=== PATIENT | female | born 2000 | race Two or more races ===

== ENCOUNTER 2020-06-04 08:45 | Inpatient (IN) | payer MEDICAID ==
[~2020-06-04] VITALS: Ht 160 cm; Wt 76.6 kg
[2020-06-04 09:41] LABS: BILIRUBIN,URINE NEGATIVE (NEG); CLARITY,URINE CLOUDY; COLOR,URINE YELLOW; NITRITE,URINE NEGATIVE (NEG); PROTEIN,URINE 100 mg/dL (NEG-TRACE)
[2020-06-04 09:44] LABS: BASO % 0 % (0-3); EOS % 0 % (0-3); HEMATOCRIT 34.4 % (36.0-47.0); HEMOGLOBIN 12.3 g/dL (12.0-15.5); LYMPH # 0.8 x10^3/uL (1.0-4.8); LYMPH % 8 % (24-48); MEAN CORPUSCULAR HEMOGLOBIN 31 pg (25-35); MEAN CORPUSCULAR HGB CONC 36 g/dL (31-37); MEAN CORPUSCULAR VOLUME 87 fL (79-100); MONO # 0.5 x10^3/uL (0.0-1.1); MONO % 5 % (0-9); NEUT # 8.5 x10^3/uL (1.8-7.7); NEUT % 87 % (31-73); PLATELET COUNT 230 x10^3/uL (140-400); RED BLOOD COUNT 3.94 x10^6/uL (3.50-5.40); RED CELL DISTRIBUTION WIDTH 13.1 % (11.5-14.5); WHITE BLOOD COUNT 9.8 x10^3/uL (4.0-11.0)
[2020-06-04 09:51] LABS: BACTERIA,URINE MANY /HPF (0-FEW); RBC,URINE FIELD OBSCURED /HPF (0-2); WBC,URINE TNTC /HPF (0-4)
[2020-06-04 09:54] LABS: CALCIUM 8.6 mg/dL (8.5-10.1); CREATININE 0.5 mg/dL (0.6-1.0); GFR 157.3; POTASSIUM 3.5 mmol/L (3.5-5.1)
[2020-06-04 10:00] LABS: ALBUMIN 2.9 g/dL (3.4-5.0); ALBUMIN/GLOBULIN RATIO 0.8 (1.0-1.7); TOTAL BILIRUBIN 0.2 mg/dL (0.2-1.0); TOTAL PROTEIN 6.7 g/dL (6.4-8.2)
[2020-06-04] MEDS ORDERED: cefTRIAXone IV Push 1 GM VIAL. IVP ONE (10:15)
--- NOTE | 2020-06-04 10:18 | PHYS DOC ---
Past Medical History Past Medical History: No Pertinent History Past Surgical History: Smoking Status: Never Smoker Alcohol Use: None General Adult EDM: Chief Complaint: URINARY FREQUENCY HPI: HPI: 20-year-old female presents emergency department today with suprapubic abdominal pain that radiates up into her right flank. It is a cramping aching pain that is mild to moderate. She has had some hematuria but denies vaginal bleeding. She is approximately 16 weeks by last menstrual period. Her OB is through [facility]. She denies nausea or vomiting. She denies fevers or chills. She denies any new rashes. Review of systems is negative for chest pain shortness of breath vomiting fevers chills or rash. All other review of systems negative. ED course: 20-year-old female who is about 16 weeks presenting to the emergency department today with right-sided flank pain and suprapubic abdominal pain concerning for UTI. On arrival she is afebrile. Heart rate is mildly elevated. Otherwise she is well-appearing and nontoxic. She is breathing comfortably in the examination room without any distress. White blood cell count within normal limits. Chemistry panel unremarkable. Urine analysis shows many bacteria with white blood cells too many to count with large leuk esterase. On clinical examination she is very tender in the right flank CVA. Will admit the patient to Dr. Macdonald. I spoke with him and Dr. Wheeler our OB profiling machine set up operator tool. Dr. Wheeler requested the patient be tested for COVID prior to going to the OB floor. Will admit the patient to the MedSurg floor until that test comes back. Basic bridge orders placed. Heart Score: Risk Factors: Risk Factors: DM, Current or recent (<one month) smoker, HTN, HLP, family history of CAD, obesity. Risk Scores: Score 0 - 3: 2.5% MACE over next 6 weeks - Discharge Home Score 4 - 6: 20.3% MACE over next 6 weeks - Admit for Clinical Observation Score 7 - 10: 72.7% MACE over next 6 weeks - Early Invasive Strategies Current Medications: Current Medications Medications (Trade) Dose Ordered Sig/Hossein Start Time Stop Time Status Last Admin Dose Admin Ceftriaxone Sodium (Rocephin) 1 gm 1X ONCE 06/04/20 10:15 06/04/20 10:16 Allergies: Allergies: Allergies Coded Allergies Type Severity Reaction Last Updated Verified No Known Drug Allergies 06/04/20 No Physical Exam: PE: Constitutional: Well developed, well nourished, no acute distress, non-toxic appearance. [] HENT: Normocephalic, atraumatic, bilateral external ears normal, oropharynx moist, no oral exudates, nose normal. [] Eyes: PERRLA, EOMI, conjunctiva normal, no discharge. [] Neck: Normal range of motion, no tenderness, supple, no stridor. [] Cardiovascular:Heart rate regular rhythm, no murmur [] Lungs & Thorax: Bilateral breath sounds clear to auscultation [] Abdomen: Bowel sounds normal, soft, no tenderness, no masses, no pulsatile masses. [] Skin: Warm, dry, no erythema, no rash. [] Back: No tenderness, no CVA tenderness. [] Extremities: No tenderness, no cyanosis, no clubbing, ROM intact, no edema. [] Neurologic: Alert and oriented X 3, normal motor function, normal sensory fun ction, no focal deficits noted. [] Psychologic: Affect normal, judgement normal, mood normal. [] Current Patient Data: Labs: Laboratory Tests Test 06/04/20 08:55 06/04/20 09:33 06/04/20 09:35 Urine Collection Type Unknown Urine Color Yellow Urine Clarity Cloudy Urine pH 6.0 (<5.0-8.0) Urine Specific [place] 1.015 (1.000-1.030) Urine Protein 100 mg/dL (NEG-TRACE) Urine Glucose (UA) Negative mg/dL (NEG) Urine Ketones (Stick) Negative mg/dL (NEG) Urine Blood Large (NEG) Urine Nitrite Negative (NEG) Urine Bilirubin Negative (NEG) Urine Urobilinogen Dipstick 1.0 mg/dL (0.2 mg/dL) Urine Leukocyte Esterase Large (NEG) Urine RBC Field obscured /HPF (0-2) Urine WBC Tntc /HPF (0-4) Urine Bacteria Many /HPF (0-FEW) POC Urine HCG, Qualitative Hcg positive (Negative) White Blood Count 9.8 x10^3/uL (4.0-11.0) Red Blood Count 3.94 x10^6/uL (3.50-5.40) Hemoglobin 12.3 g/dL (12.0-15.5) Hematocrit 34.4 % (36.0-47.0) L Mean Corpuscular Volume 87 fL (79-100) Mean Corpuscular Hemoglobin 31 pg (25-35) Mean Corpuscular Hemoglobin Concent 36 g/dL (31-37) Red Cell Distribution Width 13.1 % (11.5-14.5) Platelet Count 230 x10^3/uL (140-400) Neutrophils (%) (Auto) 87 % (31-73) H Lymphocytes (%) (Auto) 8 % (24-48) L Monocytes (%) (Auto) 5 % (0-9) Eosinophils (%) (Auto) 0 % (0-3) Basophils (%) (Auto) 0 % (0-3) Neutrophils # (Auto) 8.5 x10^3/uL (1.8-7.7) H Lymphocytes # (Auto) 0.8 x10^3/uL (1.0-4.8) L Monocytes # (Auto) 0.5 x10^3/uL (0.0-1.1) Eosinophils # (Auto) 0.0 x10^3/uL (0.0-0.7) Basophils # (Auto) 0.0 x10^3/uL (0.0-0.2) Sodium Level 137 mmol/L (136-145) Potassium Level 3.5 mmol/L (3.5-5.1) Chloride Level 102 mmol/L (98-107) Carbon Dioxide Level 24 mmol/L (21-32) Anion Gap 11 (6-14) Blood Urea Nitrogen 4 mg/dL (7-20) L Creatinine 0.5 mg/dL (0.6-1.0) L Estimated GFR (Cockcroft-Gault) 157.3 BUN/Creatinine Ratio 8 (6-20) Glucose Level 89 mg/dL (70-99) Calcium Level 8.6 mg/dL (8.5-10.1) Total Bilirubin Pending Aspartate Amino Transferase (AST) Pending Alanine Aminotransferase (ALT) Pending Alkaline Phosphatase Pending Total Protein Pending Albumin Pending Albumin/Globulin Ratio Pending Lipase Pending Laboratory Tests 06/04/20 09:35 Laboratory Tests 06/04/20 09:35 Vital Signs: Vital Signs Date Time Temp Pulse Resp B/P (MAP) Pulse Ox O2 Delivery O2 Flow Rate FiO2 06/04/20 09:01 98.2 97 17 112/55 (74) 99 Room Air 98.2 EKG: EKG: [] Radiology/Procedures: Radiology/Procedures: [] Course & Med Decision Making: Course & Med Decision Making Pertinent Labs and Imaging studies reviewed. (See chart for details) [] Dragon Disclaimer: Dragon Disclaimer: This electronic medical record was generated, in whole or in part, using a voice recognition dictation system. Departure Departure Impression: Primary Impression: Pyelonephritis Additional Impression: Pyelonephritis affecting in second trimester Disposition: ADMITTED INPATIENT Admitting Physician: HIMBrittni Condition: STABLE Referrals: NON,STAFF (PCP) Justicifation of Admission Dx: Justifications for Admission: Justification of Admission Dx: N/A CHERIE GIL MD Jun 04, 2020 10:18
--- NOTE | 2020-06-04 10:26 | RAD ---
CLINICAL HISTORY: Reason: abd pain and cramping in preg / Spl. Instructions: / History: COMPARISON: None available. TECHNIQUE: Limited transabdominal ultrasound of the uterus was performed. FINDINGS: There is a single live fetus in breech position. Cardiac activity is visualized and documented at a rate of 150 beats per minute. The placenta is anterior without placenta previa. The amniotic fluid is normal for gestational stage. The amniotic fluid index is 10.2. Cervix length measures 4.2 cm. Current measurements are: BPD - 3.52 cm = 16 weeks 6 days HC - 13.39 cm = 16 weeks 6 days AC - 11.52 cm =17 weeks 2 days FL - 2.33 cm = 17 weeks 0 days The gestational size based on todays measurements is 17 weeks 0 days. The estimated weight is 182+/- 27 gm. The estimated date of delivery is 11/12/2020. IMPRESSION: Single live intrauterine gestation in breech presentation with estimated gestational age of 17 weeks 0 days with estimated date of delivery 11/12/2020 Electronically signed by: Arnie Ortega MD (06/04/2020 10:23 AM) [id number]
[2020-06-04] MEDS ORDERED: IV NORMAL SALINE 1000ML BAG 1,000 ML IV ONE (10:45)
[2020-06-04] MEDS ORDERED: IV NORMAL SALINE 1000ML BAG 1,000 ML IV SCH (11:12)
[2020-06-04 12:45] VITALS: BP 91/58
[2020-06-04] MEDS ORDERED: DOCUSATE SODIUM 100 MG CAPSULE. PO PRN (13:30)
[2020-06-04] MEDS: IV NORMAL SALINE 1000ML BAG 1,000 ML IV SCH ×2 (14:06→22:45)
[2020-06-04] MEDS: ACETAMINOPHEN 325 MG TABLET. PO PRN ×2 (14:58→21:30)
--- NOTE | 2020-06-04 15:44 | RAD ---
STUDY: Complete renal sonogram INDICATION: Pyelonephritis. COMPARISON: None. TECHNIQUE: Real-time grayscale and color Doppler sonographic evaluation of both kidneys. The bladder was also evaluated. FINDINGS: Right kidney: Measures 12.2 cm in length. Cortical thickness is normal and cortical echogenicity is within the broad range of normal as well. No hydronephrosis but there is slight asymmetric prominence of the right renal pelvis. Left kidney: Measures 12.9 cm in length. Cortical thickness is normal and cortical echogenicity is within the broad range of normal as well. No hydronephrosis. Bladder: No layering debris or asymmetric wall thickening. Visualization of left ureteral jet but not a right ureteral jet Miscellaneous: No perinephric fluid collection. IMPRESSION: 1. The sonographic appearance of both kidneys is relatively normal. Note is made that ultrasound is often insensitive to the changes of acute pyelonephritis. 2. Mild asymmetric prominence of the right renal pelvis would most likely be physiologic given a known intrauterine . No hydronephrosis on either side. Maintained visualization of the left ureteral jet but absent visualization of a jet on the right. Electronically signed by: KIM SAAVEDRA MD (06/04/2020 3:41 PM) [id number]
--- NOTE | 2020-06-04 17:31 | PDOC1 ---
History and Physical Date of Admission: Date of Admission DATE: 06/04/20 TIME: 17:16 Chief Complaint: Chief Complain: Right flank pain and dysuria History of Present Illness: HPI: 20 yo F with no significant PMHx who is 17 weeks who comes to the ED with dysuria, lower ABD pain, right flank pain 10/10 that started beginning of this week. She also did complain of hematuria, N/V, and subjective fevers. There are no aggravating or alleviating factors. She has no complications with her current pregancy or her past one either. Denies personal or family hx of kidney stones, chest pain, SOB, diarrhea, or bloody stools. Patient has no loss of smell or taste, outside travel, or close contact with patients of COVID Past Medical/Surgical History: PMH/PSH: None Allergies: Allergies: Coded Allergies: No Known Drug Allergies (Unverified , 06/04/20) Family History: Family History: None Social History: Social History: Denies tobacco, alcohol, or drug abuse Current Medications: Current Medications Current Medications Ceftriaxone Sodium (Rocephin) 1 gm 1X ONCE IVP Last administered on 06/04/20at 10:18; Start 06/04/20 at 10:15; Stop 06/04/20 at 10:16; Status DC Sodium Chloride 1,000 ml @ 1,000 mls/hr 1X ONCE IV Last administered on 06/04/20at 10:48; Start 06/04/20 at 10:45; Stop 06/04/20 at 11:44; Status DC Sodium Chloride 1,000 ml @ 120 mls/hr Q8H20M IV ; Start 06/04/20 at 11:12; Stop 06/04/20 at 13:26; Status DC Ceftriaxone Sodium (Rocephin) 1 gm Q24H IVP ; Start 06/05/20 at 10:00 Sodium Chloride 1,000 ml @ 125 mls/hr Q8H IV Last administered on 06/04/20at 14:06; Start 06/04/20 at 13:30 Acetaminophen (Tylenol) 650 mg PRN Q6HRS PRN PO PAIN Last administered on 06/04/20at 14:58; Start 06/04/20 at 13:30 Docusate Sodium (Colace) 100 mg PRN BID PRN PO HARD STOOLS Last administered on 06/04/20at 14:58; Start 06/04/20 at 13:30 ROS: Review of Systems Review of System REVIEW OF SYSTEMS: GENERAL: Denies weakness SKIN: No bruising, hair changes or rashes. EYES: No blurred, double or loss of vision. NOSE AND THROAT: No history of nosebleeds, hoarseness or sore throat. HEART: No history of palpitations, chest pain or shortness of breath on exertion. LUNGS: Denies cough, hemoptysis, wheezing or shortness of breath. GASTROINTESTINAL: Denies changes in appetite, nausea, vomiting, diarrhea or constipation. GENITOURINARY: No history of frequency, urgency, hesitancy or nocturia. NEUROLOGIC: Denies history of numbness, tingling, or tremor. PSYCHIATRIC: No history of panic, anxiety or depression. ENDOCRINE: No history of heat or cold intolerance, polyuria or polydipsia. EXTREMITIES: Denies joint pain, pain on walking or stiffness. Physical Exam: Vital Signs: Vital Signs Date Time Temp Pulse Resp B/P (MAP) Pulse Ox O2 Delivery O2 Flow Rate FiO2 06/04/20 12:45 98.0 94 18 91/58 (69) 97 Room Air 98.0 Physcial Exam: GEN: No apparent distress. Alert and oriented HEENT: Normal cephalic, atraumatic, external auditory canals are patent EYES: Extraocular muscles are intact, pupil are equally round and reactive to light and accommodation MUSCULOSKELETAL: Well developed , well nourished, good range of motion ENDOCRINE: No thyromegaly was palpated LYMPHATICS: No cervical chain or axillary nodes were noted HEMATOPOIETIC: No bruising NECK: Supple, no JVD, no thyromegaly was noted LUNGS: Clear to auscultation in all lung rueda without rhonchi or wheezing HEART: RRR, S!, S2 present. Peripheral pulses intact, no obvious murmurs noted ABDOMEN: Soft, nontender. ABD appropriate for term. minimal CVA tenderness. EXTREMITIES: Without clubbing, cyanosis, or edema. Pedal pulses intact. Negative Homans sign NEUROLOGIC: Normal speech and tone. A&O x 3, moves all extremities, no obvious focal deficits PSYCHIATRIC: Normal affect, normal mood. Stable SKIN: No ulcerations or rashes, good skin turgor, no jaundice VASCULAR: Good capillary refill, neurovascular bundle appears to be intact Labs: Labs: Laboratory Tests Test 06/04/20 08:55 06/04/20 09:33 06/04/20 09:35 06/04/20 11:08 Urine Collection Type Unknown Urine Color Yellow Urine Clarity Cloudy Urine pH 6.0 (<5.0-8.0) Urine Specific [place] 1.015 (1.000-1.030) Urine Protein 100 mg/dL (NEG-TRACE) Urine Glucose (UA) Negative mg/dL (NEG) Urine Ketones (Stick) Negative mg/dL (NEG) Urine Blood Large (NEG) Urine Nitrite Negative (NEG) Urine Bilirubin Negative (NEG) Urine Urobilinogen Dipstick 1.0 mg/dL (0.2 mg/dL) Urine Leukocyte Esterase Large (NEG) Urine RBC Field obscured /HPF (0-2) Urine WBC Tntc /HPF (0-4) Urine Bacteria Many /HPF (0-FEW) Bedside Urine HCG, Qualitative Hcg positive (Negative) White Blood Count 9.8 x10^3/uL (4.0-11.0) Red Blood Count 3.94 x10^6/uL (3.50-5.40) Hemoglobin 12.3 g/dL (12.0-15.5) Hematocrit 34.4 % (36.0-47.0) Mean Corpuscular Volume 87 fL (79-100) Mean Corpuscular Hemoglobin 31 pg (25-35) Mean Corpuscular Hemoglobin Concent 36 g/dL (31-37) Red Cell Distribution Width 13.1 % (11.5-14.5) Platelet Count 230 x10^3/uL (140-400) Neutrophils (%) (Auto) 87 % (31-73) Lymphocytes (%) (Auto) 8 % (24-48) Monocytes (%) (Auto) 5 % (0-9) Eosinophils (%) (Auto) 0 % (0-3) Basophils (%) (Auto) 0 % (0-3) Neutrophils # (Auto) 8.5 x10^3/uL (1.8-7.7) Lymphocytes # (Auto) 0.8 x10^3/uL (1.0-4.8) Monocytes # (Auto) 0.5 x10^3/uL (0.0-1.1) Eosinophils # (Auto) 0.0 x10^3/uL (0.0-0.7) Basophils # (Auto) 0.0 x10^3/uL (0.0-0.2) Sodium Level 137 mmol/L (136-145) Potassium Level 3.5 mmol/L (3.5-5.1) Chloride Level 102 mmol/L (98-107) Carbon Dioxide Level 24 mmol/L (21-32) Anion Gap 11 (6-14) Blood Urea Nitrogen 4 mg/dL (7-20) Creatinine 0.5 mg/dL (0.6-1.0) Estimated GFR (Cockcroft-Gault) 157.3 BUN/Creatinine Ratio 8 (6-20) Glucose Level 89 mg/dL (70-99) Calcium Level 8.6 mg/dL (8.5-10.1) Total Bilirubin 0.2 mg/dL (0.2-1.0) Aspartate Amino Transf (AST/SGOT) 10 U/L (15-37) Alanine Aminotransferase (ALT/SGPT) 10 U/L (14-59) Alkaline Phosphatase 56 U/L (46-116) Total Protein 6.7 g/dL (6.4-8.2) Albumin 2.9 g/dL (3.4-5.0) Albumin/Globulin Ratio 0.8 (1.0-1.7) Lipase 72 U/L (73-393) Lactic Acid Level 1.0 mmol/L (0.4-2.0) Laboratory Tests Test 06/04/20 08:55 06/04/20 09:33 06/04/20 09:35 06/04/20 11:08 Urine Collection Type Unknown Urine Color Yellow Urine Clarity Cloudy Urine pH 6.0 (<5.0-8.0) Urine Specific [place] 1.015 (1.000-1.030) Urine Protein 100 mg/dL (NEG-TRACE) Urine Glucose (UA) Negative mg/dL (NEG) Urine Ketones (Stick) Negative mg/dL (NEG) Urine Blood Large (NEG) Urine Nitrite Negative (NEG) Urine Bilirubin Negative (NEG) Urine Urobilinogen Dipstick 1.0 mg/dL (0.2 mg/dL) Urine Leukocyte Esterase Large (NEG) Urine RBC Field obscured /HPF (0-2) Urine WBC Tntc /HPF (0-4) Urine Bacteria Many /HPF (0-FEW) Bedside Urine HCG, Qualitative Hcg positive (Negative) White Blood Count 9.8 x10^3/uL (4.0-11.0) Red Blood Count 3.94 x10^6/uL (3.50-5.40) Hemoglobin 12.3 g/dL (12.0-15.5) Hematocrit 34.4 % (36.0-47.0) Mean Corpuscular Volume 87 fL (79-100) Mean Corpuscular Hemoglobin 31 pg (25-35) Mean Corpuscular Hemoglobin Concent 36 g/dL (31-37) Red Cell Distribution Width 13.1 % (11.5-14.5) Platelet Count 230 x10^3/uL (140-400) Neutrophils (%) (Auto) 87 % (31-73) Lymphocytes (%) (Auto) 8 % (24-48) Monocytes (%) (Auto) 5 % (0-9) Eosinophils (%) (Auto) 0 % (0-3) Basophils (%) (Auto) 0 % (0-3) Neutrophils # (Auto) 8.5 x10^3/uL (1.8-7.7) Lymphocytes # (Auto) 0.8 x10^3/uL (1.0-4.8) Monocytes # (Auto) 0.5 x10^3/uL (0.0-1.1) Eosinophils # (Auto) 0.0 x10^3/uL (0.0-0.7) Basophils # (Auto) 0.0 x10^3/uL (0.0-0.2) Sodium Level 137 mmol/L (136-145) Potassium Level 3.5 mmol/L (3.5-5.1) Chloride Level 102 mmol/L (98-107) Carbon Dioxide Level 24 mmol/L (21-32) Anion Gap 11 (6-14) Blood Urea Nitrogen 4 mg/dL (7-20) Creatinine 0.5 mg/dL (0.6-1.0) Estimated GFR (Cockcroft-Gault) 157.3 BUN/Creatinine Ratio 8 (6-20) Glucose Level 89 mg/dL (70-99) Calcium Level 8.6 mg/dL (8.5-10.1) Total Bilirubin 0.2 mg/dL (0.2-1.0) Aspartate Amino Transf (AST/SGOT) 10 U/L (15-37) Alanine Aminotransferase (ALT/SGPT) 10 U/L (14-59) Alkaline Phosphatase 56 U/L (46-116) Total Protein 6.7 g/dL (6.4-8.2) Albumin 2.9 g/dL (3.4-5.0) Albumin/Globulin Ratio 0.8 (1.0-1.7) Lipase 72 U/L (73-393) Lactic Acid Level 1.0 mmol/L (0.4-2.0) Assessment/Plan Assessment/Plan Acute pyelonephritis 17 weeks gestation Person under investigation for COVID Admit to OB floor Continue rocephin pending blood and urine Cx OB consult SCD for dvt prophy Continue IVF NPO for now Dispo: pending COVID testing, blood and urine Cx Justicifation of Admission Dx: Justifications for Admission: Justification of Admission Dx: N/A MARGARITO SWEENEY MD Jun 04, 2020 17:30
[2020-06-04 18:20] VITALS: BP 86/52
[2020-06-04 21:38] VITALS: BP 100/38
[2020-06-05 02:04] VITALS: BP 84/35
[2020-06-05 06:05] VITALS: BP 90/34
[2020-06-05] MEDS: IV NORMAL SALINE 1000ML BAG 1,000 ML IV SCH ×3 (06:45→21:30)
[2020-06-05 08:52] LABS: BASO % 0 % (0-3); EOS % 1 % (0-3); HEMATOCRIT 32.3 % (36.0-47.0); HEMOGLOBIN 11.3 g/dL (12.0-15.5); LYMPH # 1.1 x10^3/uL (1.0-4.8); LYMPH % 19 % (24-48); MEAN CORPUSCULAR HEMOGLOBIN 31 pg (25-35); MEAN CORPUSCULAR HGB CONC 35 g/dL (31-37); MEAN CORPUSCULAR VOLUME 89 fL (79-100); MONO # 0.3 x10^3/uL (0.0-1.1); MONO % 5 % (0-9); NEUT # 4.3 x10^3/uL (1.8-7.7); NEUT % 75 % (31-73); PLATELET COUNT 205 x10^3/uL (140-400); RED BLOOD COUNT 3.64 x10^6/uL (3.50-5.40); RED CELL DISTRIBUTION WIDTH 13.3 % (11.5-14.5); WHITE BLOOD COUNT 5.8 x10^3/uL (4.0-11.0)
[2020-06-05 09:03] LABS: CREATININE 0.5 mg/dL (0.6-1.0); GFR 157.3; POTASSIUM 3.9 mmol/L (3.5-5.1)
--- NOTE | 2020-06-05 09:43 | CONS ---
DATE OF CONSULTATION: SUBJECTIVE: This patient is a 20-year-old white female who is a 2, para 1, about 17-week , came into the Emergency Room with a history of having pain and suprapubic pain, which is not relieved with pain pills. The patient was admitted to the hospital because of acute pyelonephritis. The patient is seen in consultation because of the second trimester . She did have a sonogram, which shows a 17 weeks' at this time and she is under the OB care at [place], [place]. OBJECTIVE: VITAL SIGNS: Stable at this time. ABDOMEN: Feels soft and is about 16-18 weeks' size. heart tones are 140 per minute and no vaginal bleeding. PELVIC: Not done. EXTREMITIES: No edema of feet. IMPRESSION: Second trimester with pyelonephritis. RECOMMENDATIONS: Would be IV fluids, IV antibiotics and monitoring of the baby and observation and further treatment. TEGAN LINK MD DR: MENDEZ/angella JOB#: [id number] / [id number]
[2020-06-05] MEDS ORDERED: cefTRIAXone IV Push 1 GM VIAL. IVP SCH (10:00)
--- NOTE | 2020-06-05 11:07 | PDOC ---
PROGRESS NOTES History of Present Illness History of Present Illness IMPRESSION Assessment/Plan Acute pyelonephritis 17 weeks gestation Person under investigation for COVID gram neg sepsis PLAN Admit to OB floor Continue rocephin pending blood and urine Cx OB consult SCD for dvt prophy Continue IVF ADAT Dispo: pending COVID testing, blood and urine Cx 06/05 AWAIT URINE CULT SENSITIVITY D/W RN Justicifation of Admission Dx: Justicifation of Admission Dx: Justifications for Admission: Justification of Admission Dx: N/A Vitals Vitals Vital Signs Date Time Temp Pulse Resp B/P (MAP) Pulse Ox O2 Delivery O2 Flow Rate FiO2 06/05/20 06:05 98.0 85 14 90/34 (52) 100 Room Air 98.0 Physical Exam Physical Exam GEN: No apparent distress. Alert and oriented HEENT: Normal cephalic, atraumatic, external auditory canals are patent EYES: Extraocular muscles are intact, pupil are equally round and reactive to light and accommodation MUSCULOSKELETAL: Well developed , well nourished, good range of motion ENDOCRINE: No thyromegaly was palpated LYMPHATICS: No cervical chain or axillary nodes were noted HEMATOPOIETIC: No bruising NECK: Supple, no JVD, no thyromegaly was noted LUNGS: Clear to auscultation in all lung rueda without rhonchi or wheezing HEART: RRR, S!, S2 present. Peripheral pulses intact, no obvious murmurs noted ABDOMEN: Soft, nontender. ABD appropriate for term. minimal CVA tenderness. EXTREMITIES: Without clubbing, cyanosis, or edema. Pedal pulses intact. Negative Homans sign NEUROLOGIC: Normal speech and tone. A&O x 3, moves all extremities, no obvious focal deficits PSYCHIATRIC: Normal affect, normal mood. Stable SKIN: No ulcerations or rashes, good skin turgor, no jaundice VASCULAR: Good capillary refill, neurovascular bundle appears to be intact General: Alert, Oriented X3, Cooperative, No acute distress Heart: Regular rate Lungs: Clear Abdomen: Soft Extremities: No cyanosis Skin: No significant lesion Labs LABS - Procedure Result URINE CULTURE Preliminary Preliminary GREATER THAN 100,000 CFU/ML [GRAM NEGATIVE RODS] on 06/05/20 at 1100 Testing Performed by: [place] [address] For Inquires, the Physician may contact the Microbiology department at [phone] GRAM NEGATIVE RODS Unless otherwise specified, Testing Performed by: [address] [address] For Inquires, the Physician may contact the Microbiology department at [phone] STUDY: Complete renal sonogram INDICATION: Pyelonephritis. COMPARISON: None. TECHNIQUE: Real-time grayscale and color Doppler sonographic evaluation of both kidneys. The bladder was also evaluated. FINDINGS: Right kidney: Measures 12.2 cm in length. Cortical thickness is normal and cortical echogenicity is within the broad range of normal as well. No hydronephrosis but there is slight asymmetric prominence of the right renal pelvis. Left kidney: Measures 12.9 cm in length. Cortical thickness is normal and cortical echogenicity is within the broad range of normal as well. No hydronephrosis. Bladder: No layering debris or asymmetric wall thickening. Visualization of left ureteral jet but not a right ureteral jet Miscellaneous: No perinephric fluid collection. IMPRESSION: 1. The sonographic appearance of both kidneys is relatively normal. Note is made that ultrasound is often insensitive to the changes of acute pyelonephritis. 2. Mild asymmetric prominence of the right renal pelvis would most likely be physiologic given a known intrauterine . No hydronephrosis on either side. Maintained visualization of the left ureteral jet but absent visualization of a jet on the right. Electronically signed by: KIM SAAVEDRA MD (06/04/2020 3:41 PM) [id number] DICTATED and SIGNED BY: KIM SAAVEDRA MD SPEC #: [id number] JARED: 06/04/20 STATUS: RES REQ #: [id number] RECD: 06/04/20 [facility] [place] DR: CHERIE GIL MD SOURCE: VOID ENTR: 06/04/20 [facility] [address]: ARMINDA,STAFF [facility]: ORDERED: URINE CULTURE Procedure Result URINE CULTURE Preliminary Preliminary GREATER THAN 100,000 CFU/ML [GRAM NEGATIVE RODS] on 06/05/20 at 1100 Testing Performed by: [address] [address] For Inquires, the Physician may contact the Microbiology department at [phone] GRAM NEGATIVE RODS Unless otherwise specified, Testing Performed by: [address] [address] For Inquires, the Physician may contact the Microbiology department at [phone] Laboratory Tests Test 06/04/20 11:08 06/05/20 08:15 Lactic Acid Level 1.0 mmol/L (0.4-2.0) White Blood Count 5.8 x10^3/uL (4.0-11.0) Red Blood Count 3.64 x10^6/uL (3.50-5.40) Hemoglobin 11.3 g/dL (12.0-15.5) Hematocrit 32.3 % (36.0-47.0) Mean Corpuscular Volume 89 fL (79-100) Mean Corpuscular Hemoglobin 31 pg (25-35) Mean Corpuscular Hemoglobin Concent 35 g/dL (31-37) Red Cell Distribution Width 13.3 % (11.5-14.5) Platelet Count 205 x10^3/uL (140-400) Neutrophils (%) (Auto) 75 % (31-73) Lymphocytes (%) (Auto) 19 % (24-48) Monocytes (%) (Auto) 5 % (0-9) Eosinophils (%) (Auto) 1 % (0-3) Basophils (%) (Auto) 0 % (0-3) Neutrophils # (Auto) 4.3 x10^3/uL (1.8-7.7) Lymphocytes # (Auto) 1.1 x10^3/uL (1.0-4.8) Monocytes # (Auto) 0.3 x10^3/uL (0.0-1.1) Eosinophils # (Auto) 0.0 x10^3/uL (0.0-0.7) Basophils # (Auto) 0.0 x10^3/uL (0.0-0.2) Sodium Level 138 mmol/L (136-145) Potassium Level 3.9 mmol/L (3.5-5.1) Chloride Level 107 mmol/L (98-107) Carbon Dioxide Level 23 mmol/L (21-32) Anion Gap 8 (6-14) Blood Urea Nitrogen 3 mg/dL (7-20) Creatinine 0.5 mg/dL (0.6-1.0) Estimated GFR (Cockcroft-Gault) 157.3 Glucose Level 83 mg/dL (70-99) Calcium Level 8.0 mg/dL (8.5-10.1) Assessment and Plan Assessmemt and Plan Problems Medical Problems: (1) Pyelonephritis Status: Acute (2) Pyelonephritis affecting in second trimester Status: Acute Comment Review of Relevant I have reviewed the following items andrés (where applicable) has been applied. Labs Laboratory Tests Test 06/04/20 08:55 06/04/20 09:33 06/04/20 09:35 06/04/20 11:08 Urine Collection Type Unknown Urine Color Yellow Urine Clarity Cloudy Urine pH 6.0 (<5.0-8.0) Urine Specific [place] 1.015 (1.000-1.030) Urine Protein 100 mg/dL (NEG-TRACE) Urine Glucose (UA) Negative mg/dL (NEG) Urine Ketones (Stick) Negative mg/dL (NEG) Urine Blood Large (NEG) Urine Nitrite Negative (NEG) Urine Bilirubin Negative (NEG) Urine Urobilinogen Dipstick 1.0 mg/dL (0.2 mg/dL) Urine Leukocyte Esterase Large (NEG) Urine RBC Field obscured /HPF (0-2) Urine WBC Tntc /HPF (0-4) Urine Bacteria Many /HPF (0-FEW) Bedside Urine HCG, Qualitative Hcg positive (Negative) White Blood Count 9.8 x10^3/uL (4.0-11.0) Red Blood Count 3.94 x10^6/uL (3.50-5.40) Hemoglobin 12.3 g/dL (12.0-15.5) Hematocrit 34.4 % (36.0-47.0) Mean Corpuscular Volume 87 fL (79-100) Mean Corpuscular Hemoglobin 31 pg (25-35) Mean Corpuscular Hemoglobin Concent 36 g/dL (31-37) Red Cell Distribution Width 13.1 % (11.5-14.5) Platelet Count 230 x10^3/uL (140-400) Neutrophils (%) (Auto) 87 % (31-73) Lymphocytes (%) (Auto) 8 % (24-48) Monocytes (%) (Auto) 5 % (0-9) Eosinophils (%) (Auto) 0 % (0-3) Basophils (%) (Auto) 0 % (0-3) Neutrophils # (Auto) 8.5 x10^3/uL (1.8-7.7) Lymphocytes # (Auto) 0.8 x10^3/uL (1.0-4.8) Monocytes # (Auto) 0.5 x10^3/uL (0.0-1.1) Eosinophils # (Auto) 0.0 x10^3/uL (0.0-0.7) Basophils # (Auto) 0.0 x10^3/uL (0.0-0.2) Sodium Level 137 mmol/L (136-145) Potassium Level 3.5 mmol/L (3.5-5.1) Chloride Level 102 mmol/L (98-107) Carbon Dioxide Level 24 mmol/L (21-32) Anion Gap 11 (6-14) Blood Urea Nitrogen 4 mg/dL (7-20) Creatinine 0.5 mg/dL (0.6-1.0) Estimated GFR (Cockcroft-Gault) 157.3 BUN/Creatinine Ratio 8 (6-20) Glucose Level 89 mg/dL (70-99) Calcium Level 8.6 mg/dL (8.5-10.1) Total Bilirubin 0.2 mg/dL (0.2-1.0) Aspartate Amino Transf (AST/SGOT) 10 U/L (15-37) Alanine Aminotransferase (ALT/SGPT) 10 U/L (14-59) Alkaline Phosphatase 56 U/L (46-116) Total Protein 6.7 g/dL (6.4-8.2) Albumin 2.9 g/dL (3.4-5.0) Albumin/Globulin Ratio 0.8 (1.0-1.7) Lipase 72 U/L (73-393) Lactic Acid Level 1.0 mmol/L (0.4-2.0) Test 06/05/20 08:15 White Blood Count 5.8 x10^3/uL (4.0-11.0) Red Blood Count 3.64 x10^6/uL (3.50-5.40) Hemoglobin 11.3 g/dL (12.0-15.5) Hematocrit 32.3 % (36.0-47.0) Mean Corpuscular Volume 89 fL (79-100) Mean Corpuscular Hemoglobin 31 pg (25-35) Mean Corpuscular Hemoglobin Concent 35 g/dL (31-37) Red Cell Distribution Width 13.3 % (11.5-14.5) Platelet Count 205 x10^3/uL (140-400) Neutrophils (%) (Auto) 75 % (31-73) Lymphocytes (%) (Auto) 19 % (24-48) Monocytes (%) (Auto) 5 % (0-9) Eosinophils (%) (Auto) 1 % (0-3) Basophils (%) (Auto) 0 % (0-3) Neutrophils # (Auto) 4.3 x10^3/uL (1.8-7.7) Lymphocytes # (Auto) 1.1 x10^3/uL (1.0-4.8) Monocytes # (Auto) 0.3 x10^3/uL (0.0-1.1) Eosinophils # (Auto) 0.0 x10^3/uL (0.0-0.7) Basophils # (Auto) 0.0 x10^3/uL (0.0-0.2) Sodium Level 138 mmol/L (136-145) Potassium Level 3.9 mmol/L (3.5-5.1) Chloride Level 107 mmol/L (98-107) Carbon Dioxide Level 23 mmol/L (21-32) Anion Gap 8 (6-14) Blood Urea Nitrogen 3 mg/dL (7-20) Creatinine 0.5 mg/dL (0.6-1.0) Estimated GFR (Cockcroft-Gault) 157.3 Glucose Level 83 mg/dL (70-99) Calcium Level 8.0 mg/dL (8.5-10.1) Laboratory Tests Test 06/04/20 11:08 06/05/20 08:15 Lactic Acid Level 1.0 mmol/L (0.4-2.0) White Blood Count 5.8 x10^3/uL (4.0-11.0) Red Blood Count 3.64 x10^6/uL (3.50-5.40) Hemoglobin 11.3 g/dL (12.0-15.5) Hematocrit 32.3 % (36.0-47.0) Mean Corpuscular Volume 89 fL (79-100) Mean Corpuscular Hemoglobin 31 pg (25-35) Mean Corpuscular Hemoglobin Concent 35 g/dL (31-37) Red Cell Distribution Width 13.3 % (11.5-14.5) Platelet Count 205 x10^3/uL (140-400) Neutrophils (%) (Auto) 75 % (31-73) Lymphocytes (%) (Auto) 19 % (24-48) Monocytes (%) (Auto) 5 % (0-9) Eosinophils (%) (Auto) 1 % (0-3) Basophils (%) (Auto) 0 % (0-3) Neutrophils # (Auto) 4.3 x10^3/uL (1.8-7.7) Lymphocytes # (Auto) 1.1 x10^3/uL (1.0-4.8) Monocytes # (Auto) 0.3 x10^3/uL (0.0-1.1) Eosinophils # (Auto) 0.0 x10^3/uL (0.0-0.7) Basophils # (Auto) 0.0 x10^3/uL (0.0-0.2) Sodium Level 138 mmol/L (136-145) Potassium Level 3.9 mmol/L (3.5-5.1) Chloride Level 107 mmol/L (98-107) Carbon Dioxide Level 23 mmol/L (21-32) Anion Gap 8 (6-14) Blood Urea Nitrogen 3 mg/dL (7-20) Creatinine 0.5 mg/dL (0.6-1.0) Estimated GFR (Cockcroft-Gault) 157.3 Glucose Level 83 mg/dL (70-99) Calcium Level 8.0 mg/dL (8.5-10.1) Microbiology 06/04/20 Urine Culture - Preliminary, Resulted Medications Current Medications Ceftriaxone Sodium (Rocephin) 1 gm 1X ONCE IVP Last administered on 06/04/20at 10:18; Start 06/04/20 at 10:15; Stop 06/04/20 at 10:16; Status DC Sodium Chloride 1,000 ml @ 1,000 mls/hr 1X ONCE IV Last administered on 06/04/20at 10:48; Start 06/04/20 at 10:45; Stop 06/04/20 at 11:44; Status DC Sodium Chloride 1,000 ml @ 120 mls/hr Q8H20M IV ; Start 06/04/20 at 11:12; Stop 06/04/20 at 13:26; Status DC Ceftriaxone Sodium (Rocephin) 1 gm Q24H IVP Last administered on 06/05/20at 09:44; Start 06/05/20 at 10:00 Sodium Chloride 1,000 ml @ 125 mls/hr Q8H IV Last administered on 06/05/20at 06:45; Start 06/04/20 at 13:30 Acetaminophen (Tylenol) 650 mg PRN Q6HRS PRN PO PAIN Last administered on 06/04/20at 21:30; Start 06/04/20 at 13:30 Docusate Sodium (Colace) 100 mg PRN BID PRN PO HARD STOOLS Last administered on 06/04/20at 14:58; Start 06/04/20 at 13:30 Vitals/I & O Vital Sign - Last 24 Hours 06/04/20 06/04/20 06/04/20 06/04/20 12:14 12:45 18:20 20:00 Temp 98.5 98.0 98.3 98.5 98.0 98.3 Pulse 92 94 88 Resp 16 18 16 B/P (MAP) 98/51 (67) 91/58 (69) 86/52 (63) Pulse Ox 100 97 99 O2 Delivery Room Air Room Air Room Air Room Air 06/04/20 06/05/20 06/05/20 21:38 02:04 06:05 Temp 97.5 97.6 98.0 97.5 97.6 98.0 Pulse 84 87 85 Resp 20 12 14 B/P (MAP) 100/38 (58) 84/35 (51) 90/34 (52) Pulse Ox 96 97 100 O2 Delivery Room Air Room Air Room Air Intake and Output 06/04/20 06/04/20 06/05/20 15:00 23:00 07:00 Intake Total 2000 ml 700 ml Output Total 600 ml Balance 2000 ml -600 ml 700 ml Justicifation of Admission Dx: Justifications for Admission: Justification of Admission Dx: N/A TANI MARTIN W MD Jun 05, 2020 11:07
[2020-06-05 11:34] VITALS: BP 94/58
[2020-06-05 17:14] VITALS: BP 99/63
[2020-06-05] MEDS: ACETAMINOPHEN 325 MG TABLET. PO PRN (20:37)
--- NOTE | 2020-06-05 22:00 | NUR ---
patient transferred from 3rd floor, assumed care of patient. vitals stable, resting in bed. Call light in reach.
[2020-06-05 22:38] VITALS: BP 87/35
[2020-06-06 02:57] VITALS: BP 91/46
[2020-06-06] MEDS: IV NORMAL SALINE 1000ML BAG 1,000 ML IV SCH (05:07)
[2020-06-06 05:16] LABS: BASO % 1 % (0-3); EOS # 0.1 x10^3/uL (0.0-0.7); EOS % 1 % (0-3); HEMATOCRIT 31.6 % (36.0-47.0); HEMOGLOBIN 10.9 g/dL (12.0-15.5); LYMPH # 1.7 x10^3/uL (1.0-4.8); LYMPH % 30 % (24-48); MEAN CORPUSCULAR HEMOGLOBIN 31 pg (25-35); MEAN CORPUSCULAR HGB CONC 35 g/dL (31-37); MEAN CORPUSCULAR VOLUME 89 fL (79-100); MONO # 0.4 x10^3/uL (0.0-1.1); MONO % 7 % (0-9); NEUT # 3.3 x10^3/uL (1.8-7.7); NEUT % 61 % (31-73); PLATELET COUNT 199 x10^3/uL (140-400); RED BLOOD COUNT 3.56 x10^6/uL (3.50-5.40); WHITE BLOOD COUNT 5.5 x10^3/uL (4.0-11.0)
[2020-06-06 05:44] LABS: ALBUMIN 2.3 g/dL (3.4-5.0); ALBUMIN/GLOBULIN RATIO 0.7 (1.0-1.7); CALCIUM 7.8 mg/dL (8.5-10.1); CREATININE 0.5 mg/dL (0.6-1.0); GFR 157.3; POTASSIUM 3.3 mmol/L (3.5-5.1); TOTAL BILIRUBIN 0.2 mg/dL (0.2-1.0); TOTAL PROTEIN 5.6 g/dL (6.4-8.2)
[2020-06-06 07:00] VITALS: BP 91/49
[2020-06-06] MEDS ORDERED: SMZ/TMP 800/160MG TABLET. PO SCH (09:00)
[2020-06-06] MEDS ORDERED: DIPH,PERTUSS(ACELL),TET VAC/PF 0.5 ML SYRINGE. VAX IM ONE (09:00)
[2020-06-06] MEDS ORDERED: POTASSIUM CHLORIDE 20 MEQ TABLET.ER. PO ONE (10:00)
[2020-06-06 10:48] VITALS: BP 105/59
[2020-06-06] MEDS ORDERED: Smz/Tmp 800/160MG PO (11:07)
--- NOTE | 2020-06-06 11:09 | DISCH ---
DISCHARGE INSTRUCTIONS Condition on Discharge Condition on Discharge: Stable (You are required to remain quarantined for at least 14 days) Activity After Discharge Activity Instructions for Disc: Resume previous activity Diet after Discharge Diet after Discharge: Regular Contacting the DRMaicol after DC Call your doctor for: If your condition worsens Follow-Up Follow up with: BANDSAW OPERATOR for your Follow Up With: Your PCP MARGARITO SWEENEY MD Jun 06, 2020 11:09
--- NOTE | 2020-06-06 12:20 | NUR ---
This RN escorted this patient ambulating to main entrance with belongings and educated on her discharge and covid. Pt left with SO and family in private vehicle, IV and tele off patient. Pt tolerated well.
--- NOTE | 2020-06-06 13:23 | PDOC3 ---
[facility]-Discharge Summary Date of Admission: Date of Admission: Jun 04, 2020 Date of Discharge: Date of Discharge: Jun 06, 2020 Admission Diagnosis: Admitting Diagnosis: Acute pyelonephritis 17 weeks gestation Person under investigation for COVID Discharge Diagnosis: Discharge Diagnosis: Acute pyelonephritis Positive for COVID infection, asymptomatic 17 weeks gestation Consults: Consults: [employer] WORKER Hospital Course: Hospital Course: 20 yo F with no significant PMHx who is 17 weeks who comes to the ED with dysuria, lower ABD pain, right flank pain 10/10 that started beginning of this week. She also did complain of hematuria, N/V, and subjective fevers. There are no aggravating or alleviating factors. She has no complications with her current pregancy or her past one either. Denies personal or family hx of kidney stones, chest pain, SOB, diarrhea, or bloody stools. Patient has no loss of smell or taste, outside travel, or close contact with patients of COVID Patient was admitted for further care with IV antibiotics. Blood and urine cultures were pending. Final culture results returned on day of discharge which grew Enterobacter aerogeneswhich was sensitive to ceftriaxone and Bactrim. Patient will be discharged with Bactrim for 7 days. On day of discharge patient was clinically improved with no more suprapubic pain or dysuria. Patient did not have any symptoms of COVID which includes shortness of breath, fever, d iarrhea, loss of taste or smell. Patient was instructed in detail to remain quarantined for at least 14 days. The rest of the hospital course was uneventful. PHYSICAL EXAM GEN: No apparent distress. Alert and oriented HEENT: Normal cephalic, atraumatic, external auditory canals are patent MUSCULOSKELETAL: Well developed , well nourished, good range of motion LUNGS: Clear to auscultation in all lung rueda without rhonchi or wheezing HEART: RRR, S!, S2 present. Peripheral pulses intact, no obvious murmurs noted ABDOMEN: Soft, nontender. ABD appropriate for term. minimal CVA tenderness. EXTREMITIES: Without clubbing, cyanosis, or edema. Pedal pulses intact. Negative Homans sign NEUROLOGIC: Normal speech and tone. A&O x 3, moves all extremities, no obvious focal deficits PSYCHIATRIC: Normal affect, normal mood. Stable SKIN: No ulcerations or rashes, good skin turgor, no jaundice VASCULAR: Good capillary refill, neurovascular bundle appears to be intact Disposition: Disposition/Orders: D/C to Home Activity: Activity: Resume previous activity Diet: Diet: Regular Medications: Home Meds Active Scripts [Smz/Tmp 800/160MG] 1 TAB TABLET No Conflict Check, 1 TAB PO BID Prov:MARGARITO SWEENEY MD 06/06/20 Scheduled [Smz/Tmp 800/160MG], 1 TAB PO BID Total Time: Total Time: Total time spent was 25 minutes in preparing scripts, discharge planning with SWI and RN and preparing this discharge summary Justicifation of Admission Dx: Justifications for Admission: Justification of Admission Dx: N/A MARGARITO SWEENEY MD Jun 06, 2020 13:23
== END 2020-06-06 12:17 | disposition home or self-care (01) | DRG 831 ==
LOC: ER 08:45 → 3 NORTH 12:10 → 6 SOUTH 06-05 21:45
PROVIDERS: ADMIT Internal Medicine; ATTEND Internal Medicine
DX: O23.02 Infections of kidney in pregnancy, second trimester (principal); U07.1 COVID-19; A41.50 Gram-negative sepsis, unspecified; O98.512 Other viral diseases complicating pregnancy, second trimester; O98.812 Other maternal infectious and parasitic diseases complicating pregnancy, second trimester; O21.9 Vomiting of pregnancy, unspecified; Z3A.17 17 weeks gestation of pregnancy
CPT/HCPCS: 36415; 76770; 76815; 80048; 80053; 81001; 81025; 83605; 83690; 85025; 86900; 86901; 87040; 87086; 96361; 96374; J0696; J7030; 99285-25; G0378; U0003-CS

== ENCOUNTER 2020-07-09 19:13 | Observation (INO) | payer MEDICAID ==
[~2020-07-09 19:13] MED LIST: Smz/Tmp 800/160MG PO
[2020-07-09] MEDS ORDERED: IV RINGERS,LACTATED 1000ML 1,000 ML IV SCH (19:16)
[2020-07-09] MEDS ORDERED: ONDANSETRON PF 4 MG/2 ML VIAL. IVP PRN (19:30)
[2020-07-09] MEDS ORDERED: ACETAMINOPHEN 325 MG TABLET. PO PRN (19:30)
[2020-07-09 19:41] LABS: BILIRUBIN,URINE NEGATIVE (NEG); CLARITY,URINE CLEAR; COLOR,URINE YELLOW; NITRITE,URINE NEGATIVE (NEG); PH,URINE 6.5 (<5.0-8.0); PROTEIN,URINE NEGATIVE (NEG-TRACE); UROBILINOGEN,URINE 0.2 mg/dL (0.2 mg/dL)
[2020-07-09 19:45] LABS: SQUAMOUS EPITHELIAL CELL,UR MANY /LPF
[2020-07-09 19:46] LABS: BACTERIA,URINE MANY /HPF (0-FEW)
[2020-07-09 19:47] LABS: RBC,URINE 0 /HPF (0-2); WBC,URINE OCC /HPF (0-4)
[2020-07-09 19:48] LABS: AMPHETAMINE/METHAMPHETAMINE NEG (NEG); BARBITURATES NEG (NEG); BENZODIAZEPINES NEG (NEG); CANNABINOIDS NEG (NEG); COCAINE NEG (NEG); METHADONE NEG (NEG); OPIATES NEG (NEG); PHENCYCLIDINE NEG (NEG)
== END 2020-07-09 20:58 | disposition home or self-care (01) ==
LOC: 3 SO LND 19:13
PROVIDERS: ADMIT Obstetrics & Gynecology; ATTEND Obstetrics & Gynecology
DX: O26.892 Other specified pregnancy related conditions, second trimester (principal); R10.9 Unspecified abdominal pain; Z3A.22 22 weeks gestation of pregnancy
CPT/HCPCS: 80307; 81001; 87086; G0378; G0379